=== PATIENT | female | born 1965 | race Hispanic/Latino ===

== ENCOUNTER 2021-10-09 19:19 | Emergency (ER) | payer BC ==
--- OUTSIDE RECORDS SUMMARY | 2021-10-09 19:22 | XMS REPORT | Continuity of Care Document ---
:1965 Author Organization [facility] t Address [address] [place] [address] Care Team Providers Name Role Phone MINA RUIZ Attending Clinician Unavailable Problems This patient has no known problems. Allergies, Adverse Reactions, Alerts This patient has no known allergies or adverse reactions. Medications This patient has no known medications. Procedures This patient has no known procedures. Encounters Start End Encounter Admission Attending Care Care Encounter Source Date/Time Date/Time Type Type Clinicians Facility Department ID 2021-04-28 2021-04-28 Outpatient BO RUIZ BRENDA [id number] [facility] 00:00:00 00:00:00 [facility] 2021-02-25 2021-02-25 Outpatient EZEKIEL RUIZ BRENDA [id number] [facility] 05:23:00 08:46:00 OBONORUMA Results This patient has no known results.
[2021-10-09] MEDS ORDERED: HYDROCODONE/APAP 5/325 MG TAB ONE (19:59)
--- NOTE | 2021-10-09 21:02 | RAD REPORT ---
EXAM DESCRIPTION: Shoulder Right 2 View - 10/09/2021 8:23 pm CLINICAL HISTORY: PAIN COMPARISON: No comparisons TECHNIQUE: Internal and external rotation views of the right shoulder were obtained. FINDINGS: There is no fracture or dislocation. AC joint is normal in appearance. Acromial humeral j oint space within normal limits. No suspicious soft tissue calcifications. IMPRESSION: No fracture, dislocation or significant right shoulder finding.
--- NOTE | 2021-10-09 21:26 | EDPHYS ---
Physician Documentation [facility] Name: Jocelyn Jones Age: 56 yrs Sex: Female : 1965 Arrival Date: 10/09/2021 Time: 19:21 Bed 23 Private MD: ED Physician Talon Hale HPI: 10/09 19:50 This 56 yrs old Female presents to ER via Ambulatory with complaints of Arm ms3 Pain. 19:50 The patient or guardian complains of pain, that is acute. The complaints affect the ms3 anterior aspect of right shoulder. Context:. Onset: The symptoms/episode began/occurred acutely, 1 day(s) ago. Treatment prior to arrival includes: elevation of the extremity. Modifying factors: the symptoms are aggravated by movement, lifting arm. Associated signs and symptoms: The patient has no apparent associated signs or symptoms. 56-year-old female with past medical history of hypertension presents for right shoulder pain that began yesterday. Patient states her pain is 10/10 and described as being sharp. Patient states the pain is worse with movement. Patient states her pain is improved with holding her hand. Patient denies fevers, chills, nausea, vomiting, chest pain, shortness of breath.. [employer]: 19:48 LMP N/A - Post-menopause jose Historical: - Allergies: 19:46 No Known Allergies; jose - Home Meds: 19:46 montelukast 10 mg oral tab [Active]; jose - PMHx: 19:46 Hypertensive disorder; jose - PSHx: 19:46 Cholecystectomy; jose - Immunization history:: Client reports having NOT received the Covid vaccine. - Social history:: Smoking status: Patient denies any tobacco usage or history of. Patient/guardian denies using alcohol, street drugs. ROS: 19:50 Constitutional: Negative for fever, and chills. Eyes: Negative for injury, pain, ms3 redness, and discharge, Neck: Negative for injury, pain, and swelling, Cardiovascular: Negative for chest pain, and palpitations. Respiratory: Negative for shortness of breath, cough, wheezing, and pleuritic chest pain, Abdomen/GI: Negative for abdominal pain, nausea, vomiting, diarrhea, and constipation, Back: Negative for injury and pain, Skin: Negative for injury, rash, and discoloration. 19:50 MS/extremity: Positive for pain, of the anterior aspect of right shoulder. 19:50 All other systems are negative. Exam: 19:50 Constitutional: This is a well developed, well nourished patient who is awake, alert, ms3 and in no acute distress. Eyes: Pupils equal round and reactive to light, extra-ocular motions intact. Lids and lashes normal. Conjunctiva and sclera are non-icteric and not injected. Periorbital areas with no swelling, redness, or edema. ENT: Nares patent. No nasal discharge, no septal abnormalities noted. Tympanic membranes are normal and external auditory canals are clear. Oropharynx with no redness, swelling, or masses, exudates, or evidence of obstruction, uvula midline. Mucous membranes moist. Chest/axilla: Normal chest wall appearance and motion. Nontender with no deformity. Cardiovascular: Regular rate and rhythm with a normal S1 and S2. No gallops, murmurs, or rubs. Normal PMI, no JVD. No pulse deficits. Respiratory: Lungs have equal breath sounds bilaterally, clear to auscultation and percussion. No rales, rhonchi or wheezes noted. No increased work of breathing, no retractions or nasal flaring. Abdomen/GI: Soft, non-tender, with normal bowel sounds. No distension or tympany. No guarding or rebound. No evidence of tenderness throughout. Skin: Warm, dry with normal turgor. Normal color with no rashes, no lesions, and no evidence of cellulitis. 19:50 Musculoskeletal/extremity: Extremities: noted in the anterior aspect of right shoulder: pain, tenderness. Vital Signs: 19:44 BP 128 / 78; Pulse 85; Resp 18; Temp 98.1; Pulse Ox 100% on R/A; Pain 10/10; jose 19:48 BP 128 / 78; Pulse 85; Resp 18; Temp 98.1; Pulse Ox 100% ; Pain 10/10; jose MDM: 19:50 Differential diagnosis: closed fracture, tendonitis, Burisitis. ms3 19:57 Patient medically screened. ms3 21:24 Data reviewed: vital signs, nurses notes, radiologic studies. ED course: Discussed ms3 x-ray results with patient. Patient to follow-up with Dr. Marks in 2 to 3 days. Patient understands agrees with plan. All questions were answered. Return precautions discussed include worsening symptoms, or any other concerns. On reevaluation patient with anterior right shoulder pain, no erythema of the right shoulder, no increased warmth of right shoulder, right hand neurovascularly intact.. 10/09 19:46 Order name: Shoulder Right (2 View) XRAY; Complete Time: 21:21 ms3 10/09 21:42 Order name: Sling; Complete Time: 21:42 lr4 Administered Medications: 19:59 Drug: HYDROcodone-acetaminophen 5 mg-325 mg 1 tabs Route: PO; lr4 21:22 Follow up: Response: Pain is decreased lr4 Disposition Summary: 10/09/21 21:25 Discharge Ordered Location: Home ms3 Problem: new ms3 Symptoms: have improved ms3 Condition: Stable ms3 Diagnosis - Pain in right arm ms3 Followup: ms3 - With: Luis Marks MD - When: 2 - 3 days - Reason: Discharge Instructions: - Discharge Summary Sheet ms3 - Musculoskeletal Pain ms3 Forms: - Medication Reconciliation Form ms3 - Thank You Letter ms3 - Antibiotic Education ms3 - Prescription Opioid Use ms3 Prescriptions: - Ibuprofen 600 mg Oral Tablet - take 1 tablet by ORAL route every 6 hours As needed take with food; 30 tablet; ms3 Refills: 0, Product Selection Permitted Signatures: Dispatcher [employer] EDMS Talon Hale DO DO ms3 Tashia Restrepo, RN Cinthya Stahl RN RN lr4 Corrections: (The following items were deleted from the chart) 10/10 04:09 10/09 19:50 -year-old female with past medical history of hypertension presents for ms3 right shoulder pain that began yesterday. Patient states her pain is 10/10 and described as being sharp. Patient states the pain is worse with movement. Patient states her pain is improved with holding her hand. Patient denies fevers, chills, nausea, vomiting, chest pain, shortness of breath.. ms3
--- NOTE | 2021-10-09 21:26 | ER ---
Nurse's Notes [facility] Name: Jocelyn Jones Age: 56 yrs Sex: Female : 1965 Arrival Date: 10/09/2021 Time: 19:21 Bed 23 Private MD: Diagnosis: Pain in right arm Presentation: 10/09 19:44 Chief complaint: Patient states: right shoulder pain x 1 day. Coronavirus screen: jose Vaccine status: Patient reports being unvaccinated. Ebola Screen: Patient negative for fever greater than or equal to 101.5 degrees Fahrenheit, and additional compatible Ebola Virus Disease symptoms Patient denies exposure to infectious person. Patient denies travel to an Ebola-affected area in the 21 days before illness onset. Initial Sepsis Screen: Does the patient meet any 2 criteria? No. Patient's initial sepsis screen is negative. Does the patient have a suspected source of infection? No. Patient's initial sepsis screen is negative. Risk Assessment: Do you want to hurt yourself or someone else? Patient reports no desire to harm self or others. Onset of symptoms was October 08, 2021. 19:44 Method Of Arrival: Ambulatory jose 19:44 Acuity: DREAD 3 jose Triage Assessment: 19:48 General: Appears uncomfortable, Behavior is calm, cooperative. Pain: Complains of pain jose in right shoulder. 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 - Social history:: Smoking status: Patient denies any tobacco usage or history of. Patient/guardian denies using alcohol, street drugs. Screenin:04 Abuse screen: Denies threats or abuse. Nutritional screening: No deficits noted. lr4 Tuberculosis screening: No symptoms or risk factors identified. Fall Risk None identified. Assessment: 20:00 General: Appears in no apparent distress. comfortable, Behavior is calm, cooperative. lr4 Pain: Complains of pain in right arm and R shoulder Pain currently is 10 out of 10 on a pain scale. Neuro: No deficits noted. Cardiovascular: No deficits noted. Respiratory: No deficits noted. Musculoskeletal: Circulation, motion, and sensation intact. Capillary refill Range of motion: limited in right shoulder. Vital Signs: 19:44 BP 128 / 78; Pulse 85; Resp 18; Temp 98.1; Pulse Ox 100% on R/A; Pain 10/10; jose 19:48 BP 128 / 78; Pulse 85; Resp 18; Temp 98.1; Pulse Ox 100% ; Pain 10/10; jose ED Course: 19:21 Patient arrived in ED. kc5 19:38 Talon Hale DO is Attending Physician. ms3 19:46 Triage completed. jose 19:54 Cinthya Huerta, RN is Primary Nurse. lr4 20:05 Arm band placed on left wrist. lr4 20:05 Bed in low position. Call light in reach. lr4 20:25 Shoulder Right (2 View) XRAY In Process Unspecified. EDMS 21:24 Luis Casanova MD is Referral Physician. ms3 21:36 No provider procedures requiring assistance completed. Patient did not have IV access lr4 during this emergency room visit. Administered Medications: 19:59 Drug: HYDROcodone-acetaminophen 5 mg-325 mg 1 tabs Route: PO; lr4 21:22 Follow up: Response: Pain is decreased lr4 Outcome: 21:25 Discharge ordered by . ms3 21:36 Discharged to home ambulatory. lr4 21:36 Condition: stable 21:36 Discharge instructions given to patient. 21:42 Patient left the ED. lr4 Signatures: Dispatcher [employer] EDMS Talon Hale DO DO ms3 Celena Thomas kc5 Tashia Restrepo RN RN bo Rogers, Lashaunda, RN RN lr4
[2021-10-09 22:31] VITALS: BP 128/78; TEMP 98.1; O2SAT 100
== END 2021-10-09 21:42 | disposition home or self-care (01) ==
LOC: ER 19:19
DX: M25.511 Pain in right shoulder (principal)
CPT/HCPCS: 99283